=== PATIENT | female | born 1965 | race Hispanic/Latino ===

== ENCOUNTER 2018-08-01 16:39 | Observation (INO) | payer SELFPAY ==
[2018-08-01] MEDS ORDERED: Iopamidol 370 76% 50 ML VIAL FS ONE (17:10)
[2018-08-01] MEDS ORDERED: Iopamidol 370 76% 100 ML VIAL ONE (17:10)
[2018-08-01 17:13] LABS: Bilirubin Negative (Negative); Blood, Urine Large (Negative); Clarity TURBID (Clear); Glucose, Urine (Dipstick) Negative (Negative); Leukocyte Large (Negative); Nitrite Positive (Negative); Pregnancy Test - Urine (BHCG) Negative (Negative); Protein, Urine (Dipstick) 100 mg/dL (Neg-Trace); Urobilinogen 0.2 mg/dL (0.2-1.0); pH, Urine 5.5 (5.0-9.0)
[2018-08-01 17:14] LABS: Pregu Control Background? CLEAR/WHITE (CLR/WHITE); Pregu Control Bar Appear? YES (CONTROL BAR)
[2018-08-01 17:19] LABS: Hemoglobin 13.6 g/dL (12.0-16.0); Mean Corpuscular HGB CONC 33.4 g/dL (32.0-36.0); Mean Corpuscular Hemoglobin 30.6 pg (27.0-31.0); Mean Corpuscular Volume 91.7 fL (78.0-98.0); Mean Platelet Volume 8.6 fL (7.4-10.4); Platelet Count 219 thou/uL (130-400); Red Blood Cell (RBC) Count 4.45 mill/uL (4.20-5.40); White Blood Cell (WBC) Count 24.4 thou/uL (4.8-10.8)
[2018-08-01 17:19] LABS: Bacteria/HPF 1+ HPF (None Seen); Hyaline Casts/LPF 7-10 HYALINE CAST LPF (0-3 Hyaline); Pathc Cast-AUWi Flag 2.18 (0-2.49)
[2018-08-01 17:38] LABS: ALT (SGPT) 24 U/L (8-55); AST (SGOT) 17 U/L (5-34); Albumin 4.1 g/dL (3.5-5.0); Alkaline Phosphatase 98 U/L (40-150); Anion Gap 14 mmol/L (10-20); BUN (Urea Nitrogen) 10 mg/dL (9.8-20.1); Bilirubin, Total 0.8 mg/dL (0.2-1.2); Calc. Creatinine Clearance 0 mL/min (70-130); Calcium 9.1 mg/dL (7.8-10.44); Carbon Dioxide 22 mmol/L (22-29); Chloride 101 mmol/L (98-107); Estimated GFR-MDRD 80; Globulin 3.5 g/dL (2.4-3.5); Glucose 128 mg/dL (70-105); Lipase 6 U/L (8-78); Potassium 3.6 mmol/L (3.5-5.1); Protein, Total 7.6 g/dL (6.0-8.3); Sodium 133 mmol/L (136-145)
[2018-08-01 17:40] LABS: Band 3 % (5-11); MDiff Complete? YES; Monocytes 5 % (0-10); Neutrophil 92 % (42-75); PLT Morphology Comment Appears Adequate
[2018-08-01] MEDS ORDERED: Ondansetron PF 4 MG/2 ML Vial ONE (18:10)
[2018-08-01] MEDS ORDERED: Morphine 4 MG/ML VIAL ONE ×2 (18:13→20:14)
--- NOTE | 2018-08-01 21:38 | PDOC.FPRHP ---
- History of Present Illness Chief Complaint: stomach pain History of Present Illness: Ms. Serrano presents with a 2 day history of abdominal pain She reports the pain as sharp and stabbing, most prominent in her RLQ, constant , she has never had anything like this before. She reports decreased PO intake and increased nausea. Her bowel movements have been few and watery. She has not passed any blood. She denies eating anything unusual and has no sick contacts. She recently arrived from [place] where she was started on PCN 7 days ago for a toothache. Colonoscopy in [place]>5 years ago reported as clear. ED Course: CBC, CMP, CT abd/pelvis Metronidazole, levaqiun, 1L NS, morphine - Allergies/Adverse Reactions Allergies Allergy/AdvReac Type Severity Reaction Status Date / Time No Known Allergies Allergy Verified 08/02/18 00:13 - Home Medications Medication Instructions Recorded Confirmed Type No Known 08/02/18 08/02/18 History - History PMHx: none PSHx: none FHx: mother with colon ca dx at 75 Social: recently traveled from [place] - Review of Systems General: denies: fever/chills, weight/appetite/sleep changes Eyes: denies: vision changes ENT: denies: nasal congestion Respiratory: denies: cough, shortness of breath Cardiovascular: denies: chest pain, palpitation Gastrointestinal: reports: nausea, diarrhea, constipation, abdominal pain. denies: vomiting, GI bleeding Genitourinary: denies: dysuria Skin: denies: rashes Musculoskeletal: denies: pain, tenderness Neurological: denies: numbness, syncope - Vital signs BP: 135/81 HR: 83 RR: 18 Tmax: 98.7 Pox: 98% on RA Wt: 93kg - Physical Exam Constitutional: NAD, awake, alert and oriented HEENT: grossly normal vision, grossly normal hearing, MMM Neck: supple, trachea midline Chest: no-tender to palpation Heart: RRR, normal S1/S2, no murmurs/rubs/gallops Lungs: CTAB, no respiratory distress, good air movement Abdomen: soft, bowel sounds present, no masses/distention, no hernias, other ( most tender over RLQ) Musculoskeletal: normal structure Neurological: no focal deficit Skin: no rash/lesions Heme/Lymphatic: no unusual bruising or bleeding Psychiatric: normal mood and affect FMR H&P: Results - Labs Result Diagrams: 08/02/18 04:53 08/02/18 04:53 Lab results: WBC 24.4 thou/uL (4.8-10.8) H 08/01/18 17:10 Hgb 13.6 g/dL (12.0-16.0) 08/01/18 17:10 Hct 40.8 % (36.0-47.0) 08/01/18 17:10 MCV 91.7 fL (78.0-98.0) 08/01/18 17:10 Plt Count 219 thou/uL (130-400) 08/01/18 17:10 Band Neuts % (Manual) 3 % (5-11) L 08/01/18 17:10 Sodium 133 mmol/L (136-145) L 08/01/18 17:10 Potassium 3.6 mmol/L (3.5-5.1) 08/01/18 17:10 Chloride 101 mmol/L (98-107) 08/01/18 17:10 Carbon Dioxide 22 mmol/L (22-29) 08/01/18 17:10 BUN 10 mg/dL (9.8-20.1) 08/01/18 17:10 Creatinine 0.75 mg/dL (0.6-1.1) 08/01/18 17:10 Glucose 128 mg/dL (70-105) H 08/01/18 17:10 Calcium 9.1 mg/dL (7.8-10.44) 08/01/18 17:10 Total Bilirubin 0.8 mg/dL (0.2-1.2) 08/01/18 17:10 AST 17 U/L (5-34) 08/01/18 17:10 ALT 24 U/L (8-55) 08/01/18 17:10 Alkaline Phosphatase 98 U/L (40-150) 08/01/18 17:10 Serum Total Protein 7.6 g/dL (6.0-8.3) 08/01/18 17:10 Albumin 4.1 g/dL (3.5-5.0) 08/01/18 17:10 Lipase 6 U/L (8-78) L 08/01/18 17:10 Urine Ketones 40 mg/dL (Negative) H 08/01/18 17:00 Urine Blood Large (Negative) H 08/01/18 17:00 Urine Nitrite Positive (Negative) H 08/01/18 17:00 Ur Leukocyte Esterase Large (Negative) H 08/01/18 17:00 Urine RBC 11-20 HPF (0-3) H 08/01/18 17:00 Urine WBC Greater Than 50-TNTC HPF (0-3) H 08/01/18 17:00 Ur Squamous Epith Cells 4-6 HPF (0-3) H 08/01/18 17:00 Urine Bacteria 1+ HPF (None Seen) H 08/01/18 17:00 FMR H&P: A/P - Problem List (1) Hydrosalpinx Current Visit: Yes Status: Acute Code(s): N70.11 - CHRONIC SALPINGITIS (2) UTI (urinary tract infection) Current Visit: Yes Status: Acute (3) Constipation Current Visit: Yes Status: Acute Code(s): K59.00 - CONSTIPATION, UNSPECIFIED - Plan Hydrosalpinx - seen on CT scan, tender pelvic exam in ED, elevated white count - cultures ordered, repeat CBC in AM - pelvic US to further evaluate - continue levaquin and metronidazole UTI - UA +, UCx sent, await sensitivities - abx above provide coverage Constipation - stool burden seen on CT, dilated loops of bowel - dulcolax and sennakot - LR 125ml/hr - stool studies pending Code: full ppx: lovenox Disposition/LOS: admit to medical, treat for constipation/UTI, further evaluate CT abnormalities FMR H&P: Upper Level - Pertinent history 53 y/o F presents for abdominal pain for 2d. On R and sharp. Does have chronic constipation and passed small loose stools today. No N/V or other stool changes. Nonbloody. Recent travel to [place]. Also has been on penicillin for unknown tooth problem. - Pertinent findings ABD: TTP in R quadrants. Lower>upper. obese LABS: WBC 24, CT official read pending, but dictation suggests R hydorsalpinx 10cm x 3cm - Plan Date/Time: 08/01/182136 Srinivas Moran, have evaluated this patient and agree with findings/plan as outlined by equine intern resident. Pertinent changes/additions are listed here. 1 - Hydrosalpinx Seen on CT. Will order US, this is likely the cause of her pain. Bimanual exam performed in ED and cultures obtained. Will further evaluate with US and consider OIL FIELD PUMPER/Onc referral. Also constipation is likely contributing, possible ileus seen on CT, and possible enteritis. Continue abx for possible enteritis. Will obtain stool studies. 2 UTI - Will continue Abx and culture. 3 Leukocytosis 2/2 UTI or enteritis. Continue to monitor. Afebrile so far. 4 Constipation - Will give stool softeners and fluids. Possibly contributing to pain. CT suggests no obstruction. Attending Addendum - Attending Addendum Date/Time: 08/01/182039 I personally evaluated the patient and discussed the management with Dr. Kessler and Dr. Schmidt I agree with the History, Examination, Assessment and Plan documented above with any addition or exceptions noted below. 53 yo female presents for evaluation of abdominal pain. Patient reports a history of chills, abdominal pain mainly in RLQ, episode of diarrhea over the past 2 days. No known sick contacts. Mildly dilated loops of small bowel on imaging. No obstruction. Right sided hydrosalpinx on CT. VS reviewed. Labs reviewed. 1. Enteritis vs Infectious hydrosalpinx: Admit. Start IVFs. Start broad spectrum antibiotics to cover PID as well. Stool, pelvic, urine, and blood cultures pending. Leukocytosis noted. Monitor for pain control. 2. UTI: Culture pending. Continue broad spectrum antibiotics. Adjust meds as needed. Awaiting cultures. Trend labs. TVUS pending. OIL FIELD PUMPER as needed. Roseann
--- NOTE | 2018-08-01 21:44 | CT ---
ABDOMEN AND PELVIC CT SCAN WITHOUT IV CONTRAST: 08/01/18 HISTORY: 53-year-old female with right lower quadrant abdominal pain, stomach cramps. Suprapubic pain. FINDINGS: Minimal linear increased markings in the lung bases probably some subsegmental atelectasis or mild ch ronic change. The liver, gallbladder, pancreas, spleen, adrenal glands are unremarkable. No renal crissy culus or acute obstruction. There is some abnormally dilated small bowel loops without an overt tr ansitional zone, nonspecific, possibly some mild focal ileus or enteritis. Oral contrast media has pr ogressed through the small bowel loops into the colon indicating the lack of high grade significant o bstruction. Normal appearing appendix. There is a somewhat oblong 3.5 x 10.2 cm diameter cystic struc ture in the right adnexal region which has a serpentiguous shape to it and probably represents signif icant right sided hydrosalpinx. There is a 2.8 cm diameter cyst in the left adnexal region. The uter us appears unremarkable. No significant abnormal fluid collection. IMPRESSION: No renal calculus or obstruction. Several minimally dilated loops of small bowel, nonspecific poss ibly minimal ileus or nonspecific enteritis but without evidence for significant high grade small bow el obstruction. [place] somewhat serpentiguous shaped structure in the right adnexa most evidence for a hydrosalpinx. Small left adnexal cyst. No CT evidence for acute appendicitis. POS: [facility]
[2018-08-01] MEDS ORDERED: metroNIDAZOLE 250 MG TAB ONE (22:43)
[2018-08-01] MEDS ORDERED: Acetaminophen 325 MG TAB ONE (22:56)
[2018-08-01] MEDS ORDERED: Senokot S 8.6-50 MG TAB PO PRN (23:58)
[2018-08-01] MEDS ORDERED: Acetaminophen 325 MG TAB PO PRN (23:58)
[2018-08-01] MEDS ORDERED: Bisacodyl 5 MG TAB PO PRN (23:58)
[2018-08-01] MEDS ORDERED: Ondansetron ODT 4 MG TAB PO PRN (23:58)
[2018-08-02 00:04] VITALS: BMI 34.0
[2018-08-02] MEDS: Lactated Ringer's 1,000 ML IV SCH ×3 (00:57→17:14)
--- NOTE | 2018-08-02 04:53 | PDOC.FM ---
- Subjective Subjective: Pt states that her pain is unchanged. She states it is a 7/10 and describes it as a burning. She denies nausea, vomiting, SOB, or chest pain. - Objective MAR Reviewed: Yes Vital Signs & Weight: Vital Signs (12 hours) Temp Pulse Resp BP Pulse Ox 08/02/18 04:00 97.5 F L 74 16 126/77 94 L 08/02/18 00:03 99.0 F 77 18 107/66 95 Weight Weight 92.624 kg Result Diagrams: 08/02/18 04:53 08/02/18 04:53 Phys Exam - Physical Examination Constitutional: NAD HEENT: moist MMs Neck: no JVD, supple Respiratory: no wheezing, clear to auscultation bilateral Cardiovascular: RRR, no significant murmur Gastrointestinal: soft, no distention, positive bowel sounds right lower abdomen tender to palpation Musculoskeletal: no edema, pulses present Psychiatric: A&O x 3 Skin: cap refill <2 seconds Dx/Plan (1) Constipation Code(s): K59.00 - CONSTIPATION, UNSPECIFIED Status: Acute (2) Hydrosalpinx Code(s): N70.11 - CHRONIC SALPINGITIS Status: Acute (3) UTI (urinary tract infection) Status: Acute - Plan Plan: This is a 53 yo female with no significant PMH Hydrosalpinx -Seen on CT -Continuing levaquin and metronidazole -Pelvic ultra sound to evaluate further, we will direct our care based on these findings -Pending urine cultures, VP3, and GC/chlamydia -Pain control with emily tylenol and tramadol for breakthrough pain UTI -UA positive for UTI -Cultures pending, currently on the above regiment Constipation -Dilated small bowel with contrast passage to the colon on CT -dulcolax and sennakot -LR 125 ml/hr -Pending stool studies
[2018-08-02 05:38] LABS: #Eosinphils 0.1 thou/uL (0.0-0.7); #Lymphocytes 1.6 thou/uL (1.20-3.40); #Monocytes 1.3 thou/uL (0.11-0.59); #Neutrophils 16.3 thou/uL (1.40-6.50); %Basophils 0.2 % (0.0-1.0); %Eosinophils 0.7 % (0.0-10.0); %Lymphocytes 8.5 % (21.0-51.0); %Monocytes 6.6 % (0.0-10.0); Hemoglobin 11.6 g/dL (12.0-16.0); Mean Corpuscular HGB CONC 32.5 g/dL (32.0-36.0); Mean Corpuscular Hemoglobin 30.2 pg (27.0-31.0); Mean Corpuscular Volume 92.7 fL (78.0-98.0); Mean Platelet Volume 9.1 fL (7.4-10.4); Platelet Count 176 thou/uL (130-400); RBC Distribution Width 12.1 % (11.5-14.5); Red Blood Cell (RBC) Count 3.85 mill/uL (4.20-5.40); White Blood Cell (WBC) Count 19.4 thou/uL (4.8-10.8)
[2018-08-02 05:54] LABS: ALT (SGPT) 14 U/L (8-55); AST (SGOT) 11 U/L (5-34); Albumin 3.3 g/dL (3.5-5.0); Alkaline Phosphatase 92 U/L (40-150); Anion Gap 10 mmol/L (10-20); BUN (Urea Nitrogen) 8 mg/dL (9.8-20.1); Bilirubin, Total 0.8 mg/dL (0.2-1.2); Calc. Creatinine Clearance 139 mL/min (70-130); Calcium 8.4 mg/dL (7.8-10.44); Carbon Dioxide 23 mmol/L (22-29); Chloride 104 mmol/L (98-107); Estimated GFR-MDRD Greater than 90; Glucose 108 mg/dL (70-105); Potassium 3.4 mmol/L (3.5-5.1); Protein, Total 6.3 g/dL (6.0-8.3); Sodium 134 mmol/L (136-145)
[2018-08-02] MEDS ORDERED: traMADol HCl 50 MG TAB PO SCH (06:45)
[2018-08-02] MEDS: metroNIDAZOLE 500 MG TAB PO SCH ×3 (08:48→19:57)
[2018-08-02] MEDS: Polyethylene Glycol 3350 17 GM Packet PO SCH (08:48)
[2018-08-02] MEDS: Potassium Chloride 20 MEQ TAB PO SCH (08:48)
[2018-08-02] MEDS: Enoxaparin Sodium 40 MG/0.4 ML SYRINGE SC SCH (08:49)
[2018-08-02] MEDS: Acetaminophen 500 MG TAB PO SCH ×3 (08:52→19:30)
--- NOTE | 2018-08-02 09:32 | ULT ---
PELVIC SONOGRAM TRANSABDOMINAL AND TRANSVAGINAL IMAGING WITH DUPLEX EVALUATION: History Pelvic pain. Abnormal CAT scan. Right pelvic mass. FINDINGS: The urinary bladder is incompletely distended. Uterus has a heterogeneous echotexture and is 10.6 cm . Endometrium is 1.1 cm. At the right adnexa, a tortuous tubular fluid-filled structure measures up to 10.0 cm length x 5.0 cm width x 3.1 cm depth and correlates with the CT findings. Fluid surrounds the right adnexa. The right ovary is 2.8 cm and the left is 3.4 cm. Each demonstrates good color and spectral Doppler flow. Cyst arising from the left ovary measures up to 3.0 cm. IMPRESSION: 1. Right hydrosalpinx with a small amount of adjacent free fluid. 2. Left ovarian cyst 3.[address] POS: [facility]
--- NOTE | 2018-08-02 13:41 | PRG ---
DATE OF SERVICE: 08/02/2018 ADDENDUM: This is an addendum to the note of Dr. Chad Stark. Ms. Fink was admitted with abdominal pain with CT evidence of some enteritis, but no bowel obstruction. She also has a large right hydrosalpinx and bilateral ovarian cyst. Her test is negative. On admission, her white count was significantly elevated at 24,000. Her hemoglobin was 13.6 with hematocrit of 40.8. Her white count has dropped to 19,400. There are several stool studies still pending. I would recommend the addition of a Clostridium difficile since she was recently treated with penicillin for some unknown malady. In the event, she states she feels somewhat better. Her abdomen is diffusely tender, but there is no guarding, rebound, or rigidity. She also has some right upper quadrant tenderness, now we suggest we check a right upper quadrant ultrasound for completeness sake. In the event, as an outpatient, she will need to have the hydrosalpinx followed and likely would need to repeat a colonoscopy, which she had, she states, eight years ago. Job ID: [id number]
--- NOTE | 2018-08-02 14:29 | ULT ---
ULTRASOUND GALLBLADDER RIGHT UPPER QUADRANT: HISTORY: Abdominal pain and pelvic pain. COMPARISON: CT 08/01/2018. FINDINGS: Visualized portions of the pancreas are unremarkable. Increased hepatic echotexture. Liver measures 18.2 cm in length. Portal vein is patent with antegrade flow. Common bile duct measures 4 mm, normal. The gallbladder is normal. The right kidney measures 10.6 x 4.8 x 4.9 cm without mass or hydronephrosis or abnormal calcificatio ns. IMPRESSION: 1. No acute gallbladder pathology. 2. Increased hepatic echotexture suggesting steatosis. POS: [facility]
--- NOTE | 2018-08-02 21:51 | PDOC.EVN ---
Event Note - Event Note Event Note: [facility] note 220 This patient here for abdominal pain, right more than left. Afebrile. Initial concern was possible ileus but not remarkable. 53 yo postmenopusal with LAP: Informal consult via personal communication with Dr Foster. Aware of patient status and incidental fnding of hydrosaplix on right adnexa. VP3 negative. We are not sure when the tubal infection first occurred, but may be somewhat related to the pain if acute. We will check GC and CHL (sent) as VP3 neg. It is reasonable to consider a antibiotic regimine that would cover GI issues and PID... She is currently on levaquin. Per CDC, would switch to Rocephin single IM dose and po doxy and flagyl for PID coverage. Tmax 99.0 since admit. Labs: Urine CX with E Coli WBC was 24 now 19 FM in process of GI workup as well Assessment: Possible chronic hydrosalpix vs new infection. Plan: Follow WBCs and trend. No evidence TOA on images just the hydrosalpinx. Follow GC and Chlamydia.
[2018-08-02] MEDS: traMADol HCl 50 MG TAB PO PRN (21:53)
--- NOTE | 2018-08-02 22:12 | PDOC.EVN ---
Event Note - Event Note Event Note: further evaluation reveals sexually active, unprotected intercourse 1 week ago, pre-menopausal. Will treat for PID. <Tl Kessler - Last Filed: 08/02/18 22:10> - Event Note Event Note: Chlamydia pending. Will adjust medications based on risk and exam findings. Quite possible asymptomatic chronic hydrosalpinx. GI symptoms improved. Still with pelvic pain and discomfort. ABrshaylaMD <So Foster - Last Filed: 08/07/18 15:01>
[2018-08-02] MEDS ORDERED: cefTRIAXone\\ROCEPHIN 1 GM VIAL IM SCH (22:15)
[2018-08-02] MEDS ORDERED: Doxycycline 100 MG CAP PO SCH (22:30)
[2018-08-02] MEDS ORDERED: cefTRIAXone\\ROCEPHIN 1 GM in Sodium Chloride 0.9% 100 ML IVPB SCH (23:00)
[2018-08-03] MEDS: Lactated Ringer's 1,000 ML IV SCH ×2 (00:02→10:43)
[2018-08-03] MEDS: Acetaminophen 500 MG TAB PO SCH ×4 (00:02→14:32)
--- NOTE | 2018-08-03 05:38 | PDOC.FM ---
- Subjective Subjective: Pt states that her pain is improved this morning. She states that she vomited once yesterday but is not feeling nauseated. She reports some diarrhea yesterday but not throughout the day. - Objective MAR Reviewed: Yes Vital Signs & Weight: Vital Signs (12 hours) Temp Pulse Resp BP BP Pulse Ox 08/03/18 04:00 98.0 F 65 16 101/52 L 94 L 08/03/18 00:00 99.8 F H 83 18 118/65 91 L 08/02/18 20:00 98.5 F 77 18 124/61 96 Weight Weight 92.624 kg I&O: 08/01/18 08/02/18 08/03/18 06:59 06:59 06:59 Intake Total 1529 640 Output Total 650 Balance 879 640 Result Diagrams: 08/02/18 04:53 08/02/18 04:53 Phys Exam - Physical Examination Constitutional: NAD HEENT: moist MMs Neck: no JVD, supple Respiratory: no wheezing, no rales, no rhonchi, clear to auscultation bilateral Cardiovascular: RRR, no significant murmur Gastrointestinal: soft, no distention, positive bowel sounds mild diffuse tenderness Musculoskeletal: no edema, pulses present Neurological: moves all 4 limbs Psychiatric: normal affect, A&O x 3 Dx/Plan (1) Constipation Code(s): K59.00 - CONSTIPATION, UNSPECIFIED Status: Acute (2) Hydrosalpinx Code(s): N70.11 - CHRONIC SALPINGITIS Status: Acute (3) UTI (urinary tract infection) Status: Acute - Plan Plan: This is a 53 yo female with no significant PMH Hydrosalpinx -Seen on CT -New information regarding unprotected intercourse reveals greater risk for PID , we are treating with rocephin, doxy, and flagyl -If she continues to improve, she will likely be treated outpt -This case was discussed with Dr. Torres as well as the plan -Pelvic ultra sound to evaluate further, we will direct our care based on these findings -Pending urine cultures, VP3, and GC/chlamydia -Pain control with emily tylenol and tramadol for breakthrough pain -RUQ US showed fatty liver but no gallbladder pathology -Afebrile overnight UTI -UA positive for UTI -Cultures pending, currently on the above regiment Constipation -Dilated small bowel with contrast passage to the colon on CT -dulcolax and sennakot -LR 125 ml/hr -Pending stool studies -Advancing diet
[2018-08-03 08:06] LABS: #Basophils 0.1 thou/uL (0.0-0.2); #Eosinphils 0.2 thou/uL (0.0-0.7); #Lymphocytes 1.7 thou/uL (1.20-3.40); #Monocytes 0.9 thou/uL (0.11-0.59); #Neutrophils 10.5 thou/uL (1.40-6.50); %Basophils 0.5 % (0.0-1.0); %Eosinophils 1.7 % (0.0-10.0); %Lymphocytes 12.8 % (21.0-51.0); %Monocytes 6.9 % (0.0-10.0); Hemoglobin 10.8 g/dL (12.0-16.0); Mean Corpuscular Hemoglobin 30.8 pg (27.0-31.0); Mean Corpuscular Volume 93.4 fL (78.0-98.0); Mean Platelet Volume 8.9 fL (7.4-10.4); Platelet Count 179 thou/uL (130-400); RBC Distribution Width 11.9 % (11.5-14.5); Red Blood Cell (RBC) Count 3.52 mill/uL (4.20-5.40); White Blood Cell (WBC) Count 13.5 thou/uL (4.8-10.8)
[2018-08-03 08:26] LABS: Anion Gap 11 mmol/L (10-20); BUN (Urea Nitrogen) 8 mg/dL (9.8-20.1); Calc. Creatinine Clearance 148 mL/min (70-130); Calcium 8.3 mg/dL (7.8-10.44); Carbon Dioxide 24 mmol/L (22-29); Chloride 105 mmol/L (98-107); Estimated GFR-MDRD Greater than 90; Glucose 97 mg/dL (70-105); Potassium 3.7 mmol/L (3.5-5.1); Sodium 136 mmol/L (136-145)
[2018-08-03] MEDS: metroNIDAZOLE 500 MG TAB PO SCH ×2 (08:45→14:32)
[2018-08-03] MEDS: Potassium Chloride 20 MEQ TAB PO SCH (08:45)
[2018-08-03] MEDS: Polyethylene Glycol 3350 17 GM Packet PO SCH (08:46)
[2018-08-03] MEDS: Enoxaparin Sodium 40 MG/0.4 ML SYRINGE SC SCH (08:46)
[2018-08-03] MEDS: traMADol HCl 50 MG TAB PO PRN (08:48)
[2018-08-03] MEDS ORDERED: Doxycycline 100 MG CAP PO SCH (09:00)
[2018-08-03 11:19] LABS: HIV (1/2) Antibody/Antigen Non-Reactive (NonReactive); HIV 1/2 INDEX 0.16 S/CO (<1.00); Syphilis Antibody Nonreactive (Nonreactive)
--- NOTE | 2018-08-03 16:38 | PRG ---
DATE OF SERVICE: This is an addendum to the note of Dr. Chad Stark. Ms. Fink was seen by the LOAD MANAGER Service as requested upon admission. They believe that the patient possibly has PID and slightly changed her antibiotic regimen. In the event, she feels better and her white count has dropped. We will discharge her today on a PID regimen for the next two weeks for followup as an outpatient. I will also suggest an HIV and RPR given the possibility of PID. Job ID: [id number]
[2018-08-03 17:37] VITALS: BP 94/56; TEMP 97.9
[2018-08-03 22:48] LABS: Chlamydia by PCR Not Detected (NotDetected); GC by PCR Not Detected (NotDetected)
--- NOTE | 2018-08-04 11:52 | DIS ---
DATE OF ADMISSION: 08/01/2018 DATE OF DISCHARGE: 08/03/2018 ADMITTING ATTENDING: Dr. So Foster. DISCHARGE ATTENDING: Dr. Sanket Neil. RESIDENT: Chad Stark DO CONSULT: WATER METER INSTALLER, Dr. Torres. PROCEDURES: 1. Pelvic ultrasound showing right hydrosalpinx with small amount of adjacent free fluid, left ovarian cyst [address] abdomen with pelvis shows several mildly dilated loops of small bowel, nonspecific, possibly minimal ileus/nonspecific enteritis without evidence for significant high-grade bowel obstruction. [place], somewhat shape of structure of the right adnexa was evident for hydrosalpinx. A small adnexal cyst. No CT evidence for acute appendicitis. PRIMARY DIAGNOSIS: Hydrosalpinx. SECONDARY DIAGNOSES: 1. Urinary tract infection. 2. Constipation. DISCHARGE MEDICATIONS: 1. Cefdinir 300 mg p.o. q.12 hours. 2. Doxycycline 100 mg p.o. b.i.d. 3. Metronidazole 500 mg p.o. b.i.d. 4. Tylenol 1000 mg p.o. q.6 hours p.r.n. pain. DISCONTINUED MEDICATIONS: None. BRIEF HISTORY OF PRESENT ILLNESS AND HOSPITAL COURSE: This is a 53-year-old female with no significant past medical history, who presents with a 2-day history of sharp abdominal pain. right lower quadrant constant. The patient was admitted and had the imaging as above. On admission, the patient was afebrile. Vital signs were stable. The patient did report she had unprotected sex a week earlier. During her stay here, she was on antibiotics to cover PID as well as the colitis mentioned on the CT. Dr. Torres was consulted and recommended antibiotics for PID and close followup. At the time of discharge, the patient was stable. Pain was better controlled. DISPOSITION: Stable. DISCHARGE INSTRUCTIONS: 1. Location: Home. 2. Diet: Regular. 3. Activity: As tolerated. 4. Followup: Follow up with PCP in 1 to [address] Torres in 2 weeks. Job ID: [id number]
== END 2018-08-03 19:14 | disposition home or self-care (01) ==
LOC: ERS 16:39 → INTOOBSV 21:30 → T4-B 21:30
PROVIDERS: ADMIT Student in an Organized Health Care Education/Training Program; ATTEND Student in an Organized Health Care Education/Training Program
DX: N70.11 Chronic salpingitis (principal); N39.0 Urinary tract infection, site not specified; K59.09 Other constipation; N83.202 Unspecified ovarian cyst, left side; N83.201 Unspecified ovarian cyst, right side; Z80.0 Family history of malignant neoplasm of digestive organs
CPT/HCPCS: 36415; 74177; 76705; 76856; 80048; 80053; 81003; 81015; 81025; 83630; 83690; 84145; 85025; 86780; 87015; 87045; 87046; 87077; 87086; 87186; 87206; 87324; 87389; 87449; 87480; 87491; 87510; 87591; 87660; 87899; 96361; 96365; 96367; 96372; 96375; 96376; G0378; J0696; J0744; J1650; J2270; J2405; J7050; Q0162